=== PATIENT | female | born 1960 | race Hispanic/Latino ===

== ENCOUNTER 2020-05-06 17:00 | Emergency (ER) | payer OTHER, SELFPAY ==
[2020-05-06 17:36] LABS: #Basophils 0.1 thou/uL (0.0-0.2); #Lymphocytes 2.1 thou/uL (1.20-3.40); #Monocytes 0.8 thou/uL (0.11-0.59); #Neutrophils 6.3 thou/uL (1.40-6.50); %Basophils 0.9 % (0.0-1.0); %Eosinophils 0.3 % (0.0-10.0); %Lymphocytes 22.8 % (21.0-51.0); %Monocytes 8.5 % (0.0-10.0); %Neutrophils 67.4 % (42.0-75.0); Mean Corpuscular HGB CONC 34.8 g/dL (32.0-36.0); Mean Corpuscular Hemoglobin 34.4 pg (27.0-31.0); Mean Corpuscular Volume 98.9 fL (78.0-98.0); Mean Platelet Volume 8.4 fL (7.4-10.4); Platelet Count 200 thou/uL (130-400); RBC Distribution Width 11.3 % (11.5-14.5); Red Blood Cell (RBC) Count 4.94 mill/uL (4.20-5.40); White Blood Cell (WBC) Count 9.4 thou/uL (4.8-10.8)
[2020-05-06 17:57] LABS: ALT (SGPT) Less than 7 U/L (8-55); AST (SGOT) 19 U/L (5-34); Albumin 3.7 g/dL (3.5-5.0); Alkaline Phosphatase 80 U/L (40-110); Anion Gap 17 mmol/L (10-20); BUN (Urea Nitrogen) 23 mg/dL (9.8-20.1); Bilirubin, Total 0.6 mg/dL (0.2-1.2); Calc. Creatinine Clearance 0 mL/min (70-130); Calcium 8.2 mg/dL (7.8-10.44); Carbon Dioxide 21 mmol/L (22-29); Chloride 100 mmol/L (98-107); Globulin 3.5 g/dL (2.4-3.5); Glucose 169 mg/dL (70-105); Protein, Total 7.2 g/dL (6.0-8.3); Sodium 134 mmol/L (136-145)
--- NOTE | 2020-05-06 18:22 | RAD ---
PORTABLE CHEST: History: Fever, nausea, dehydration, Covid symptoms. FINDINGS: Heart size is within normal limits. There are atherosclerotic changes of the aorta. The lungs are jayla ar of any infiltrative process. IMPRESSION: No active intrathoracic disease. POS: OFF
[2020-05-06] MEDS ORDERED: Dexamethasone 4 mg/ml Vial ONE ×2 (18:23→18:24)
[2020-05-06] MEDS ORDERED: Ketorolac Tromethamine 30 MG/ML VIAL ONE (18:23)
[2020-05-06] MEDS ORDERED: Ondansetron PF 4 MG/2 ML Vial ONE (19:06)
[2020-05-06 22:08] LABS: Lactic Acid 1.5 mmol/L (0.5-2.2)
[2020-05-07 14:00] LABS: SARS-CoV-2 PCR by NAA DETECTED (NotDetected)
--- NOTE | 2020-05-25 19:13 | EKG ---
Test Reason : Blood Pressure : / mmHG Vent. Rate : 113 BPM Atrial Rate : 113 BPM P-R Int : 118 ms QRS Dur : 078 ms QT Int : 316 ms P-R-T Axes : 062 066 043 degrees QTc Int : 433 ms Sinus tachycardia Otherwise normal ECG Confirmed by ABBY HENAO DO ([id number]), science editor DANIELE ANDERSEN ([id number]) on 05/25/2020 7:12:48 PM Referred By: Confirmed By:ABBY HENAO DO
== END 2020-05-06 22:38 | disposition home or self-care (01) ==
LOC: ERS 17:00
DX: U07.1 COVID-19 (principal); E86.0 Dehydration; F17.210 Nicotine dependence, cigarettes, uncomplicated
CPT/HCPCS: 36415; 71045; 80053; 83605; 84484; 85025; 87635; 93005; 96374; 96375; J1100; J1885; J2405; U0003; U0005

== ENCOUNTER 2021-01-03 18:17 | Emergency (ER) | payer SELFPAY | END 2021-01-04 12:06 | disposition left against medical advice (07) | LOC: ERS 22:09 | DX: Z53.21 Procedure and treatment not carried out due to patient leaving prior to being seen by health care provider (principal) ==

== ENCOUNTER 2023-03-23 11:38 | Outpatient (CLI) | payer OTHER | END 2023-03-23 11:39 | disposition home or self-care (01) | LOC: BICRAD 11:38 | PROVIDERS: ATTEND Preventive Medicine Occupational Medicine | DX: Z02.71 Encounter for disability determination (principal); M51.16 Intervertebral disc disorders with radiculopathy, lumbar region; M17.11 Unilateral primary osteoarthritis, right knee; M47.816 Spondylosis without myelopathy or radiculopathy, lumbar region | CPT/HCPCS: 72100 ==